=== PATIENT | female | born 1990 | race Caucasian/White ===

== ENCOUNTER 2022-01-26 12:12 | Emergency (ER) | payer BC ==
[2022-01-26] MEDS ORDERED: Sodium Chloride 0.9% 1,000 ML IV ONE (14:25)
[2022-01-26] MEDS ORDERED: Morphine 4 MG/ML VIAL IVPUSH ONE (14:25)
[2022-01-26] MEDS ORDERED: Ondansetron 4 MG/2 ML SDV IVPUSH ONE (14:25)
[2022-01-26 14:53] LABS: CARBON DIOXIDE,CO2 23.2 mmol/L (21.0-32.0); POTASSIUM,K 3.5 mmol/L (3.5-5.1)
[2022-01-26] MEDS ORDERED: Piperacillin/Tazobactam 3.375 GM in Sodium Chloride 0.9% 50 ML IV ONE (17:22)
[2022-01-26] MEDS ORDERED: Pantoprazole 80 MG in Sodium Chloride 0.9% 10 ML IVPUSH ONE (17:33)
[2022-01-26] MEDS ORDERED: Iopamidol 755 MG/ML 500 ML Multipack Bottle IVPUSH ONE (18:22)
[2022-01-26] MEDS ORDERED: Diatrizoate Meglumine/Diatrizoate Sodium 37% 30 ML Bottle PO ONE ×2 (18:23→18:24)
== END 2022-01-26 18:40 ==
LOC: MW.ED 12:12
DX: K25.1 Acute gastric ulcer with perforation (principal); D72.829 Elevated white blood cell count, unspecified; Z91.012 Allergy to eggs; Z88.8 Allergy status to other drugs, medicaments and biological substances; Z20.822 Contact with and (suspected) exposure to COVID-19; Z98.84 Bariatric surgery status
CPT/HCPCS: 36415; 74176; 74177; 80053; 81001; 83690; 84703; 85025; 87086; 87088; 87186; 87635; 96361; 96365; 96375; 99285; C9113; J2270; J2405; J2543; J3370; J3490; J7030; J7050; Q9967; U0002